=== PATIENT | female | born 1970 | race Hispanic/Latino ===

== ENCOUNTER 2020-08-14 02:43 | Emergency (ER) | payer BC, OTHER ==
[~2020-08-14] VITALS: Ht 157.5 cm; Wt 85.3 kg
[2020-08-14 03:16] LABS: CLARITY,URINE CLOUDY (CLEAR); COLOR,URINE YELLOW (YELLOW); KETONES,URINE TRACE (NEGATIVE); LEUKOCYTE ESTERASE ,URINE LARGE (NEGATIVE); NITRITE,URINE NEGATIVE (NEGATIVE); PROTEIN,URINE DIPSTICK 2+ (NEGATIVE); URINE UROBILINOGEN 0.2 mg/dL (0.2 - 1)
[2020-08-14 03:22] LABS: BACTERIA,URINE MODERATE /HPF; EPITHELIAL CELLS,URINE FEW /LPF; WBC,URINE (MAN) >50 /HPF (0-5)
[2020-08-14] MEDS ORDERED: CEPHALEXIN500 MG PO (03:36)
[2020-08-14 05:16] VITALS: BP 118/70
== END 2020-08-14 04:20 | disposition home or self-care (01) ==
LOC: ER 03:12
DX: N12 Tubulo-interstitial nephritis, not specified as acute or chronic (principal); R30.0 Dysuria; R50.9 Fever, unspecified; M54.5 Low back pain
CPT/HCPCS: 81001; 87086; 87186; 99282